=== PATIENT | female | born 1945 | race Caucasian/White ===

== ENCOUNTER → 2019-03-19 | Outpatient (CLI) | payer OTHER | END | disposition home or self-care (01) | LOC: OIH 13:09 | PROVIDERS: ATTEND Internal Medicine Cardiovascular Disease | DX: Z13.6 Encounter for screening for cardiovascular disorders (principal) | CPT/HCPCS: 75571 ==

== ENCOUNTER 2019-11-18 17:24 | Emergency (ER) | payer OTHER ==
[~2019-11-18 17:24] MED LIST: ASPI-555 PO; ATEN50TA PO; LOSA50TA64 PO; PANT40TA PO; ROSU10TA28 PO; THIA250T9 PO; TIOT18CA3 IH
[2019-11-18 18:13] LABS: BASOPHILS % (AUTO) 0.9 % (0.0-5.0); EOSINOPHILS % (AUTO) 3.7 % (0.0-8.0); HEMATOCRIT 34.2 % (36-48); LYMPHOCYTES % (AUTO) 14.7 % (21.0-51.0); MEAN CORPUSCULAR HEMOGLOBIN 33.8 pg (27.0-33.0); MEAN CORPUSCULAR HGB CONC 34.2 g/dL (32.0-36.0); MEAN CORPUSCULAR VOLUME 98.8 fL (79-99); MONOCYTES % (AUTO) 9.9 % (3.0-13.0); NEUTROPHILS % (AUTO) 70.2 % (40.0-77.0); PLATELET COUNT (AUTO) 280 K/uL (130-400); RED BLOOD CELL COUNT(AUTO) 3.46 MIL/uL (4.00-5.50); RED CELL DISTRIBUTION WIDTH 11.6 % (11.0-15.5)
[2019-11-18 18:15] LABS: APPEARANCE,URINE Clear (CLEAR); BILIRUBIN,URINE Negative (NEGATIVE); COLOR,URINE Yellow (YELLOW); GLUCOSE, URINE (UA) Negative (NEGATIVE); KETONES,URINE Negative (NEGATIVE); LEUKOCYTE ESTERASE ,URINE Trace (NEGATIVE); NITRATE,URINE Negative (NEGATIVE); OCCULT BLOOD,URINE Trace (NEGATIVE); PROTEIN,URINE Negative (NEGATIVE); UROBILINOGEN,URINE 0.2 mg/dL (0.2-1.0)
[2019-11-18 18:28] LABS: INR 1.01 (0.85-1.15); PARTIAL THROMBOPLASTIN TIME 28.7 SEC (26.3-35.5); PROTHROMBIN TIME 10.6 SEC (9.6-11.6)
[2019-11-18 18:30] LABS: POTASSIUM 4.4 mmol/L (3.5-5.1)
[2019-11-18 18:36] LABS: ALBUMIN 3.3 g/dL (3.5-5.0); BILIRUBIN,TOTAL 0.8 mg/dL (0.2-1.0); TOTAL PROTEIN, SERUM 7.5 g/dL (6.0-8.3)
[2019-11-18 18:55] LABS: BACTERIA,URINE Rare /HPF (None Seen)
[2019-11-18 18:56] LABS: SQUAMOUS EPITHELIAL CELL,UR 0-2 /HPF (0-2)
[2019-11-18 19:11] LABS: B-TYPE NATRIURETIC PEPTIDE 312 pg/mL (0-100)
[2019-11-18] MEDS ORDERED: METOPROLOL TARTRATE 1 MG/ML 5ML VIAL IV ONE (19:21)
[2019-11-18] MEDS ORDERED: CLONIDINE HCL 0.1 MG TABLET ONE (20:39)
== END 2019-11-18 21:59 | disposition home or self-care (01) ==
LOC: EDH 17:24
DX: I10 Essential (primary) hypertension (principal); I25.10 Atherosclerotic heart disease of native coronary artery without angina pectoris; J44.9 Chronic obstructive pulmonary disease, unspecified
CPT/HCPCS: 36415; 71045; 80053; 81001; 82550; 83880; 84484; 85025; 85610; 85730; 93005; 96374; 99285; J3490

== ENCOUNTER 2019-11-20 07:00 | Day surgery (SDC) | payer MEDICARE, OTHER ==
[2019-11-18 16:30] VITALS: BP 214/110
--- NOTE | 2019-11-18 17:04 | NUR ---
called [facility] Doctor Goldie GARDNER to advise that pt bp was 214/110 , than manual check was 198/88 and recheck was 223/110, pt asymptomatic and stated she took her bp meds, per [facility] pt need to be taken to ER, Took pt via wheelchair to ER department.
[~2019-11-20] VITALS: Ht 162.6 cm; Wt 64.3 kg
[2019-11-20] VITALS (10 sets, daily range): BP systolic 123–169; BP diastolic 48–79
[2019-11-20] MEDS ORDERED: SODIUM CHLORIDE 0.9% 1000ML 1,000 ML IV ONE (07:05)
--- NOTE | 2019-11-20 07:45 | NUR ---
ABNORMAL LABS, CHEST XRAY KENDRA SCHULTE HERE AT NURSES' STATION. ALL ABNORMAL LAB VALUES AND CHEST XRAY RESULT REPORTED TO [facility]. NO FURTHER ORDERS GIVEN AT THIS TIME, MAY PROCEED WITH PLANNED PROCEDURE. ALSO REPORTED TO [facility] THAT PT WENT TO ER 11/18/19 DUE TO ELEVATED BP.
[2019-11-20] MEDS ORDERED: HEPARIN SODIUM 1000UNIT/ML 10ML VIAL ONE (08:54)
[2019-11-20] MEDS ORDERED: IOHEXOL 350 MG/ML 100ML INFUS..BTL IV ONE (08:54)
[2019-11-20] MEDS ORDERED: IOHEXOL-350 50ML VIAL IV ONE (08:54)
[2019-11-20] MEDS ORDERED: MEPERIDINE-PF 25 MG/ML SYG ONE ×3 (08:54→09:54)
[2019-11-20] MEDS ORDERED: SODIUM BICARB 50MEQ 50ML VIAL ONE (08:54)
[2019-11-20] MEDS ORDERED: LIDOCAINE HCL 2% 20ML ONE (08:55)
[2019-11-20] MEDS ORDERED: MIDAZOLAM HCL 1 MG/ML 2ML VIAL ONE ×3 (08:55→09:54)
[2019-11-20] MEDS ORDERED: SODIUM CHLORIDE 0.9% 1000ML 1,000 ML IV SCH (10:26)
--- NOTE | 2019-11-20 15:15 | NUR ---
DISCHARGE PT DISCHARGED VIA WHEELCHAIR WITH FRIEND. PT STABLE. NO COMPLAINTS MADE. GAUZE OPSITE DRESSING TO RIGHT RADIAL REMAINS DRY AND INTACT, NO OOZING NO HEMATOMA NOTED. DISCHARGE INSTRUCTIONS GIVEN TO FRIEND AND PT, VERBALIZED UNDERSTANDING.
== END 2019-11-20 15:15 | disposition home or self-care (01) ==
LOC: DAH 07:00
PROVIDERS: ATTEND Internal Medicine Cardiovascular Disease
DX: I25.10 Atherosclerotic heart disease of native coronary artery without angina pectoris (principal); E78.5 Hyperlipidemia, unspecified; J44.9 Chronic obstructive pulmonary disease, unspecified; I12.9 Hypertensive chronic kidney disease with stage 1 through stage 4 chronic kidney disease, or unspecified chronic kidney disease; N18.9 Chronic kidney disease, unspecified; Z79.899 Other long term (current) drug therapy; G62.9 Polyneuropathy, unspecified; Z90.49 Acquired absence of other specified parts of digestive tract; Z90.89 Acquired absence of other organs; Z98.51 Tubal ligation status
CPT/HCPCS: 93458; A4215; A4216; A4221; A4222; A4223 ×3; A4606; A4663; C1769 ×2; C1894 ×3; J1644 ×2; J2175 ×3; J2250 ×3; J3490 ×2; J7030; Q9965; Q9967 ×2; 99156; 99157